=== PATIENT | female | born 1985 | race Caucasian/White ===

== ENCOUNTER → 2016-12-07 | Outpatient (CLI) | payer OTHER ==
[~2016-12-07] MED LIST: CALCIUM500 M1 PO; FEOSOL325 MG PO; MOTRIN800 MG PO; PERCOCET 5-3251 EACH PO; PHENERGAN25 M1 PO; PLAQUENIL200 MG PO; PRENATAL 1+1)(P1 TAB PO; ZOFRAN ODT 4 MG4 MG PO
== END | disposition disaster alternative care site (69) ==
LOC: GRAD 15:27
DX: R20.0 Anesthesia of skin (principal); C71.9 Malignant neoplasm of brain, unspecified
CPT/HCPCS: A9576

== ENCOUNTER → 2017-01-09 | Outpatient (CLI) | payer OTHER ==
--- NOTE | ~2017-01-09 | ECHO ---
Transthoracic Echocardiography Report (TTE) Demographics Patient Name ESTHER KAPOOR Date of Study 01/09/2017 A Patient Number [id number] Visit Number [id number] Date of 1985 Room Number Gender Female Number Age 31 year(s) Referring Justen Stark MD Hatchery Attendant Laura Huang RVT Physician Joshua Taveras MD Physician Interpreting Steve Mccall Junior Java Developer Physician Charis DICKSON Supervising Ordering Joshua Taveras MD, MD/MLP Physician Nurse Stress Community Life Director Conclusions Contractility Score Summary Normal Left Ventricular contractility was noted. Summary The estimated left ventricular ejection fraction is 55-60%. Diastolic assessment reveals normal relaxation. Trivial mitral regurgitation by color Doppler. Mild prolapse of the anterior mitral valve leaflet(s). Trivial pulmonic valve regurgitation by color Doppler. Mildly dilated right ventricle. Normal right ventricular systolic performance. Procedure Type of Study TTE procedure:2D Echocardiogram. Procedure Date Date: 01/09/2017 Start: 12:15 PM Study Location: Echo Lab Technical Quality: Adequate visualization Indications:Tachycardia. Appropriate Use Criteria: 9 Patient Status: Routine HR: 102 bpm BP: 102/56 mmHg M-Mode/2D Measurements LV Diastolic Dimension: 3.84 cm LV Systolic Dimension: 2.36 cm LV Septum Diastolic: 1.04 cm LV PW Diastolic: 0.94 cm AO Root Dimension: 2.3 cm Cardiac Output: 3.14 l/min AV Cusp Separation: 1.8 cm RV Diastolic Dimension: 1.69 cm LVOT: 1.8 cm LVOT VTI: 12.1 cm RV Base: 2.47 cm LV Stroke volume: 30.78 ml RV Length: 5.19 cm TAPSE: 2.47 cm TDI-S': 14.4 cm/s Doppler Measurements AV Peak Velocity: 1.19 m/s MV Peak E-Wave: 0.87 m/s AV Peak Gradient: 5.66 mmHg MV Peak A-Wave: 0.6 m/s AV Mean Gradient: 3 mmHg MV E/A Ratio: 1.45 LVOT Peak Velocity: 0.65 m/s MV P1/2t: 60 msec PV Peak Velocity: 0.93 m/s E' Septal Velocity: 0.15 m/s PV Peak Gradient: 3.46 mmHg E' Lateral Velocity: 0.24 m/s A' Septal Velocity: 0.08 m/s A' Lateral Velocity: 0.12 m/s Findings Left Ventricle Diastolic assessment reveals normal relaxation. Right Ventricle Mildly dilated right ventricle. Normal right ventricular systolic performance. Left Atrium Normal left atrial size. Right Atrium IVC measures 1.20 cm with inspiratory collapse. Mitral Valve Trivial mitral regurgitation by color Doppler. Mild prolapse of the anterior mitral valve leaflet(s). Aortic Valve Normal aortic valve structure and function. Tricuspid Valve Normal tricuspid valve structure and function. Trivial tricuspid regurgitation . Pulmonic Valve Trivial pulmonic valve regurgitation by color Doppler. Pericardial Effusion No evidence of pericardial effusion. Miscellaneous Visualized portions of the aortic root and ascending aorta appear normal in size. Pleural Effusion No evidence of pleural effusion. Contractility Score LV regional wall motion:(0-Non visualized 1-Normal 2-Hypokinesis 3-Akinesis 4-Dyskinesis 5-Aneurysm) Signature dtt: Reuben Wilson dtd: 01/09/17 [id number] Physician Self Edit
== END | disposition disaster alternative care site (69) ==
LOC: GCAR 11:52
DX: I73.00 Raynaud's syndrome without gangrene (principal); I27.2 Other secondary pulmonary hypertension; I34.0 Nonrheumatic mitral (valve) insufficiency; I37.1 Nonrheumatic pulmonary valve insufficiency; I51.7 Cardiomegaly; R53.83 Other fatigue; R00.0 Tachycardia, unspecified; R76.9 Abnormal immunological finding in serum, unspecified